=== PATIENT | female | born 1975 | race Caucasian/White ===

== ENCOUNTER 2017-03-03 10:35 | Observation (INO) | payer OTHER ==
[2017-03-03] MEDS ORDERED: NITROGLYCERIN SL TABS 0.4 MG TAB SUBLINGUAL STA (10:51)
[2017-03-03] MEDS ORDERED: SODIUM CHLORIDE 0.9% 1,000 ML IV STA (10:51)
--- NOTE | 2017-03-03 10:54 | ED ---
Chest Pain HPI - General Chief Complaint: Chest Pain Stated Complaint: Chest Pain Time Seen by Provider: 03/03/17 10:47 Source: patient, RN notes reviewed Mode of arrival: wheelchair Limitations: no limitations - History of Present Illness Initial Comments: 41-year-old female presents to the emergency department with a chief complaint of chest pain. Patient states she developed the chest pain center of her chest when she woke up this morning. Patient states she was laying in bed. Patient states she feels that she is having a little bit of hard time breathing. Patient states that she felt that she had some sweating. Patient states it radiates up her neck. Patient states that she has a history of chest pain past but that was when they removed her gallbladder. Patient denies any young history of heart disease in the family. Patient states that she thought it was initially heartburn but states it feels higher than that. She also feels as if her heart is pounding. Patient states her pain is 9 out of 10. Patient states she was concerned due to her symptoms so she thought that she should be evaluated. Patient denies any recent fever, chills, back pain, abdominal pain, nausea vomiting, numbness or tingling, dysuria or hematuria, constipation or diarrhea, headaches or visual changes, or any other current symptoms. - Related Data Home Medications Medication Instructions Recorded Confirmed Ergocalciferol [Vitamin D2] 50,000 unit PO Q14D 03/03/17 03/03/17 Omeprazole [PriLOSEC] 20 mg PO AC-BRKFST 03/03/17 03/03/17 Allergies Allergy/AdvReac Type Severity Reaction Status Date / Time No Known Allergies Allergy Verified 03/03/17 11:32 Review of Systems ROS Statement: Those systems with pertinent positive or pertinent negative responses have been documented in the HPI. ROS Other: All systems not noted in ROS Statement are negative. EKG Findings - EKG Comments: EKG Findings:: A. fib with RVR ventricular rate duration 80, QT to 284. 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 History of Any Multi-Drug Resistant Organisms: None Reported Past Surgical History: Cholecystectomy, Tubal Ligation Additional Past Surgical History / Comment(s): tubal ligation Past Anesthesia/Blood Transfusion Reactions: No Reported Reaction Past Psychological History: No Psychological Hx Reported Smoking Status: Current every day smoker Past Alcohol Use History: Occasional Additional Past Alcohol Use History / Comment(s): 1-2 times/ month Past Drug Use History: None Reported General Exam - General Exam Comments Initial Comments: General: The patient is awake and alert, in no distress, and does not appear acutely ill. Obese. Eye: Pupils are equal, round and reactive to light, extra-ocular movements are intact; there is normal conjunctiva bilaterally. No signs of icterus. Ears, nose, mouth and throat: There are moist mucous membranes and no oral lesions. Neck: The neck is supple, there is no tenderness. Cardiovascular: There is a tachycardia. No murmur, rub or gallop is appreciated. Respiratory: Lungs are clear to auscultation, respirations are non-labored, breath sounds are equal. No wheezes, stridor, rales, or rhonchi. Gastrointestinal: Soft, non-distended, non-tender abdomen without masses or organomegaly noted. There is no rebound or guarding present. No CVA tenderness. Bowel sounds are unremarkable. Back: There is no tenderness to palpation in the midline. There is no obvious deformity. No rashes noted. Musculoskeletal: Normal ROM, no tenderness, There is no pedal edema. There is no calf tenderness or swelling. Sensation intact. Pulses equal bilaterally 2+. Neurological: CN II-XII intact, There are no obvious motor or sensory deficits. Coordination appears grossly intact. Speech is normal. Skin: Skin is warm and dry and no rashes or lesions are noted. Psychiatric: Cooperative, appropriate mood & affect, normal judgment. Limitations: no limitations Course Vital Signs 03/03/17 03/03/17 10:39 11:24 Temperature 98.3 F Pulse Rate 82 91 Respiratory 18 18 Rate Blood Pressure 119/56 147/69 O2 Sat by Pulse 97 95 Oximetry - Reevaluation(s) Reevaluation #1: 03/03/17 11:30 Patient is sent her back to normal sinus rhythm without starting Cardizem we will hold cardizem at this time and continue to monitor patient. Reevaluation #2: 03/03/17 12:36 Patient states she did take an aspirin 324 prior to arrival. Chest Pain MDM - MDM 41-year-old female presents to the emergency Department chief complaint of chest pain. At this time patient was found to be in A. fib with RVR. Patient received nitro and she did go pain free. Patient A. fib self converted she was listening have written a low Cardizem drip is some cardiac are negative we will admit for continued observation. We will continue the heparin. Dr. Azevedo via Dr. Ohara discussed. At this time we will admit for cardiology consult. Disposition Clinical Impression: Atrial fibrillation, Chest pain Disposition: ADMITTED IP TO THIS HOSP Condition: Stable Referrals: Kvng Kaur MD [Primary Care Provider] - 1-2 days Time of Disposition: 12:36 Decision Date: 03/03/17 Decision Time: 12:36
[2017-03-03] MEDS ORDERED: DILTIAZEM 125 MG in SODIUM CHLORIDE 0.9% 100 ML IV ONE (11:02)
[2017-03-03] MEDS ORDERED: HEPARIN SODIUM,PORCINE 5,000 UNIT/ML 1 ML VIAL IV ONE (11:03)
[2017-03-03] MEDS ORDERED: HEPARIN SODIUM,PORCINE 5,000 UNIT/ML 1 ML VIAL IV PRN (11:03)
[2017-03-03] MEDS ORDERED: HEPARIN SODIUM,PORCINE/D5W PMX 25,000 UNIT in DEXTROSE/WATER 1 500ML.BAG IV SCH (11:15)
--- NOTE | 2017-03-03 11:18 | XR ---
EXAMINATION TYPE: XR chest 2V DATE OF EXAM: 03/03/2017 COMPARISON: NONE HISTORY: Chest pains today. Atrial fibrillation on admission. TECHNIQUE: Frontal and lateral views of the chest are obtained. FINDINGS: Exam is slightly suboptimal secondary to patient's large body habitus. There is no focal ai r space opacity, pleural effusion, or pneumothorax seen. The cardiac silhouette size is within sujata l limits. The osseous structures are intact. Cholecystectomy clips are suspected in the upper abdom en seen best on lateral view. IMPRESSION: No acute cardiopulmonary process.
[2017-03-03 11:23] LABS: Basophils % (A) 0 %; CH 30.6; CHCM 33.6; Eosinophils # (A) 0.1 k/uL (0-0.7); Eosinophils % (A) 1 %; HCT 42.6 % (34.0-46.0); HDW 2.35; HGB 14.1 gm/dL (11.4-16.0); Luc # (Auto) 0.14; Luc % (Auto) 1; Lymphocytes # (A) 2.7 k/uL (1.0-4.8); Lymphocytes % (A) 25 %; MCH 30.2 pg (25.0-35.0); MCHC 33.1 g/dL (31.0-37.0); MCV 91.2 fL (80.0-100.0); Mean Platelet Volume 6.7; Monocytes # (A) 0.4 k/uL (0-1.0); Monocytes % (A) 4 %; Neutrophils # (A) 7.7 k/uL (1.3-7.7); Neutrophils % (A) 69 %; RBC 4.67 m/uL (3.80-5.40); RDW 12.8 % (11.5-15.5); WBC 11.1 k/uL (3.8-10.6); WBC (Perox) 10.66
[2017-03-03 11:31] LABS: INR 0.9 (<1.1); Partial Thromboplastin Time 25.2 sec (22.0-30.0); Prothrombin Time 9.7 sec (9.0-12.0)
[2017-03-03 11:32] LABS: ALT 17 U/L (9-52); AST 16 U/L (14-36); Alkaline Phosphatase 88 U/L (38-126); Amylase 39 U/L (30-110); Anion Gap 10 mmol/L; Blood Urea Nitrogen 13 mg/dL (7-17); Calcium 8.8 mg/dL (8.4-10.2); Carbon Dioxide 21 mmol/L (22-30); Chloride 111 mmol/L (98-107); Glucose 115 mg/dL (74-99); Magnesium 1.9 mg/dL (1.6-2.3); Non-African American GFR(MDRD) >60 (>60 ml/min/1.73 sqM); Potassium 3.8 mmol/L (3.5-5.1); Sodium 142 mmol/L (137-145); Total Bilirubin 0.7 mg/dL (0.2-1.3); Total Protein 6.9 g/dL (6.3-8.2)
[2017-03-03 11:47] LABS: Creatine Kinase 56 U/L (30-135)
[2017-03-03 11:59] LABS: Creatine Kinase MB 0.3 ng/mL (0.0-2.4); Troponin I <0.012 ng/mL (0.000-0.034)
[2017-03-03] MEDS ORDERED: NITROGLYCERIN SL TABS 0.4 MG TAB SUBLINGUAL PRN (12:36)
--- NOTE | 2017-03-03 13:55 | P.CRDCN ---
History of Present Illness Consult date: 03/03/17 Reason for Consult (text): chest pain, paroxysmal atrial fibrillation with RVR Chief complaint: chest pain History of present illness: This is a pleasant 41-year-old female patient with a history of acute liver failure in 2012 secondary to diet pills, GERD, obesity, current every day smoker. She drinks about three 32 ounce Mountain Dew's daily. No history of hypertension, diabetes or hyperlipidemia, no history of premature coronary artery disease. She does snore, has ever been tested for sleep apnea. She presented to the emergency department with complaints of developing burning across her chest that radiated up her neck and along her jaw while she was laying in bed. She denies feeling of rapid heartbeat but did feel her heart beating harder. Upon presentation to the emergency department EKG showed atrial fibrillation with rapid ventricular response. She converted to sinus rhythm prior to initiating Cardizem drip. Labs showed negative troponin 1, normal renal function and normal thyroid levels. Chest x-ray showed no acute cardiopulmonary process. Patient was initiated on a heparin drip and Cardizem at 2.5 mg an hour. She is maintaining sinus rhythm. Upon examination, patient is resting comfortably in bed with family at bedside. No further complaints of chest discomfort. 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 History of Any Multi-Drug Resistant Organisms: None Reported Past Surgical History: Cholecystectomy, Tubal Ligation Additional Past Surgical History / Comment(s): tubal ligation Past Anesthesia/Blood Transfusion Reactions: No Reported Reaction Past Psychological History: No Psychological Hx Reported Smoking Status: Current every day smoker Past Alcohol Use History: Occasional Additional Past Alcohol Use History / Comment(s): 1-2 times/ month Past Drug Use History: None Reported - Past Family History Mother Family Medical History: No Reported History Father Family Medical History: No Reported History Medications and Allergies Home Medications Medication Instructions Recorded Confirmed Type Ergocalciferol [Vitamin D2] 50,000 unit PO Q14D 03/03/17 03/03/17 History Omeprazole [PriLOSEC] 20 mg PO AC-BRKFST 03/03/17 03/03/17 History Allergies Allergy/AdvReac Type Severity Reaction Status Date / Time No Known Allergies Allergy Verified 03/03/17 11:32 Physical Exam Vitals: Vital Signs Temp Pulse Resp BP Pulse Ox 03/03/17 13:12 98.1 F 73 17 115/68 100 03/03/17 11:24 91 18 147/69 95 03/03/17 10:39 98.3 F 82 18 119/56 97 Intake and Output 03/02/17 03/03/17 03/03/17 22:59 06:59 14:59 Other: Weight 162.386 kg Patient Weight 03/04/17 06:59 Weight 162.386 kg PHYSICAL EXAMINATION: HEENT: Head is atraumatic, normocephalic. Pupils equal, round. Neck is supple. There is no elevated jugular venous pressure. HEART EXAMINATION: Heart sounds regular, S1 and S2 normal. No murmur or gallop heard. CHEST EXAMINATION: Lungs are clear to auscultation and precussion. No chest wall tenderness is noted on palpation or with deep breathing. ABDOMEN: Soft, obese, nontender. Bowel sounds are heard. No organomegaly noted. EXTREMITIES: 2+ peripheral pulses with no evidence of peripheral edema and no calf tenderness noted. NEUROLOGIC patient is awake, alert and oriented x3. . Results 03/03/17 11:05 03/03/17 11:05 Cardiac Enzymes 03/03/17 03/03/17 Range/Units 11:05 11:05 AST 16 (14-36) U/L CK-MB (CK-2) 0.3 (0.0-2.4) ng/mL Troponin I <0.012 (0.000-0.034) ng/mL Coagulation 03/03/17 Range/Units 11:05 PT 9.7 (9.0-12.0) sec APTT 25.2 (22.0-30.0) sec CBC 03/03/17 Range/Units 11:05 WBC 11.1 H (3.8-10.6) k/uL RBC 4.67 (3.80-5.40) m/uL Hgb 14.1 (11.4-16.0) gm/dL Hct 42.6 (34.0-46.0) % Plt Count 305 (150-450) k/uL Comprehensive Metabolic Panel 03/03/17 Range/Units 11:05 Sodium 142 (137-145) mmol/L Potassium 3.8 (3.5-5.1) mmol/L Chloride 111 H (98-107) mmol/L Carbon Dioxide 21 L (22-30) mmol/L BUN 13 (7-17) mg/dL Creatinine 0.81 (0.52-1.04) mg/dL Glucose 115 H (74-99) mg/dL Calcium 8.8 (8.4-10.2) mg/dL AST 16 (14-36) U/L ALT 17 (9-52) U/L Alkaline Phosphatase 88 (38-126) U/L Total Protein 6.9 (6.3-8.2) g/dL Albumin 3.8 (3.5-5.0) g/dL Current Medications Generic Name Dose Route Start Last Admin Trade Name Freq PRN Reason Stop Dose Admin Aspirin 325 mg 03/04/17 09:00 Aspirin PO DAILY [facility] Ergocalciferol 50,000 unit 03/10/17 12:00 Vitamin D2 PO Q14D [facility] Heparin Sodium (Porcine) 0 unit 03/03/17 11:03 Heparin IV PER PROTOCOL PRN Low PTT Protocol Heparin Sodium/Dextrose 25,000 500 mls @ 20 mls/hr 03/03/17 11:15 03/03/17 11 :21 unit/ IV Solution IV 6.16 units/kg/hr .Q24H CARLO 20 mls/hr Protocol Administration 6.16 UNITS/KG/HR Sodium Chloride 1,000 mls @ 100 mls/hr 03/03/17 12:45 Saline 0.9% IV .Q10H [facility] Nitroglycerin 0.4 mg 03/03/17 12:36 Nitrostat SUBLINGUAL Q5M PRN Chest Pain Pantoprazole Sodium 40 mg 03/04/17 07:30 Protonix PO AC-BRKFST CARLO Intake and Output 03/02/17 03/03/17 03/03/17 22:59 06:59 14:59 Other: Weight 162.386 kg Patient Weight 03/04/17 06:59 Weight 162.386 kg 03/03/17 11:05 03/03/17 11:05 EKG Interpretations (text) Initially showed atrial fibrillation with rapid ventricular response has since converted to normal sinus rhythm with no acute ST-T wave abnormalities. Assessment and Plan Plan: Assessment and plan #1 paroxysmal atrial fibrillation with rapid ventricular response, new onset, currently maintaining sinus rhythm #2 chest pain #3 obesity #4 nicotine dependence #5 GERD From Cardiology's perspective, we will obtain a 2-D echo with Doppler to assess LV function. We will stop Cardizem drip. We will continue IV heparin for 24 hours. Keep the patient nothing by mouth after midnight and we will schedule the patient for a stress echo to be done tomorrow. We will set the patient up for a sleep study as an outpatient. Discussed importance of smoking cessation. Further recommendations to follow. ROLL UP GUIDER OPERATOR note has been reviewed, I agree with a documented findings and plan of care. Patient was seen and examined.
[2017-03-03] MEDS: SODIUM CHLORIDE 0.9% 1,000 ML IV SCH (14:00)
[2017-03-03 15:11] VITALS: RESP 16
[2017-03-03 17:32] LABS: Creatine Kinase 43 U/L (30-135)
[2017-03-03 17:44] LABS: Creatine Kinase MB 0.3 ng/mL (0.0-2.4); Troponin I <0.012 ng/mL (0.000-0.034)
[2017-03-04 00:50] LABS: Creatine Kinase 37 U/L (30-135)
[2017-03-04 01:02] LABS: Creatine Kinase MB 0.3 ng/mL (0.0-2.4); Troponin I <0.012 ng/mL (0.000-0.034)
[2017-03-04] MEDS: SODIUM CHLORIDE 0.9% 1,000 ML IV SCH ×2 (04:27→07:54)
[2017-03-04 07:16] LABS: Prothrombin Time 10.3 sec (9.0-12.0)
[2017-03-04 07:19] LABS: Basophils % (A) 0 %; CH 30.2; CHCM 31.6; Eosinophils # (A) 0.2 k/uL (0-0.7); Eosinophils % (A) 2 %; HCT 37.7 % (34.0-46.0); HDW 2.27; Luc # (Auto) 0.18; Luc % (Auto) 2; Lymphocytes # (A) 3.2 k/uL (1.0-4.8); Lymphocytes % (A) 34 %; MCH 30.5 pg (25.0-35.0); MCHC 31.9 g/dL (31.0-37.0); MCV 95.7 fL (80.0-100.0); Mean Platelet Volume 6.7; Monocytes # (A) 0.4 k/uL (0-1.0); Monocytes % (A) 4 %; Neutrophils # (A) 5.4 k/uL (1.3-7.7); Neutrophils % (A) 58 %; RBC 3.94 m/uL (3.80-5.40); WBC 9.4 k/uL (3.8-10.6); WBC (Perox) 9.51
[2017-03-04] MEDS ORDERED: PANTOPRAZOLE 40 MG TABLET PO SCH (07:30)
[2017-03-04 07:32] LABS: ALT 19 U/L (9-52); AST 16 U/L (14-36); Alkaline Phosphatase 67 U/L (38-126); Anion Gap 6 mmol/L; Blood Urea Nitrogen 12 mg/dL (7-17); Calcium 8.1 mg/dL (8.4-10.2); Carbon Dioxide 21 mmol/L (22-30); Chloride 113 mmol/L (98-107); Cholesterol 107 mg/dL (<200); Glucose 100 mg/dL (74-99); HDL Cholesterol 30 mg/dL (40-60); Non-African American GFR(MDRD) >60 (>60 ml/min/1.73 sqM); Potassium 4.1 mmol/L (3.5-5.1); Sodium 140 mmol/L (137-145); Total Bilirubin 0.6 mg/dL (0.2-1.3); Total Protein 5.9 g/dL (6.3-8.2); Triglycerides 98 mg/dL (<150)
[2017-03-04] MEDS ORDERED: ASPIRIN 325 MG TAB PO SCH (09:00)
--- NOTE | 2017-03-04 10:44 | ECHOF ---
Referral Reason:chest pain, atrial fibrillation MEASUREMENTS -------- HEIGHT: 167.6 cm WEIGHT: 162.4 kg BP: 114/64 IVSd: 1.6 cm (0.6 - 1.1) LVIDd: 3.3 cm (3.9 - 5.3) LVPWd: 1.4 cm (0.6 - 1.1) IVSs: 1.7 cm LVIDs: 1.5 cm LVPWs: 1.5 cm Ao Diam: 3.3 cm (2.0 - 3.7) AV Cusp: 1.6 cm (1.5 - 2.6) LA Diam: 3.4 cm (2.7 - 3.8) MV EXCURSION: 17.701 mm (> 18.000) MV EF SLOPE: 101 mm/s (70 - 150) EPSS: 0.7 cm MV E Jere: 1.02 m/s MV DecT: 239 ms MV A Jere: 0.62 m/s MV E/A Ratio: 1.66 RAP: 5.00 mmHg RVSP: 13.32 mmHg FINDINGS -------- Sinus rhythm. This was a technically good study. There is moderate concentric left ventricular hypertrophy. Overall left ventricular systolic function is normal with, an EF between 55 - 60 %. The right ventricle is normal in size and function. The left atrium is normal in size. The right atrium is normal in size. The aortic valve is trileaflet, and appears structurally normal. No aortic stenosis or regurgitation. The mitral valve leaflets are mildly thickened. Mild mitral regurgitation is present. Mild tricuspid regurgitation present. The right ventricular systolic pressure, as measured by Doppler, is 13.32mmHg. Pulmonic valve appears structurally normal. The aortic root size is normal. The pericardium is normal. CONCLUSIONS -------- 1. Sinus rhythm. 2. Mild mitral regurgitation is present. 3. Mild tricuspid regurgitation present. 4. The right ventricular systolic pressure, as measured by Doppler, is 13.32mmHg. 5. Pulmonic valve appears structurally normal. 6. The aortic root size is normal. 7. The pericardium is normal. 8. This was a technically good study. 9. There is moderate concentric left ventricular hypertrophy. 10. Overall left ventricular systolic function is normal with, an EF between 55 - 60 %. 11. The right ventricle is normal in size and function. 12. The left atrium is normal in size. 13. The right atrium is normal in size. 14. The aortic valve is trileaflet, and appears structurally normal. No aortic stenosis or regurgitation. 15. The mitral valve leaflets are mildly thickened. SUBSTANCE ABUSE CLINICIAN: Callie Peters RDCS
--- NOTE | 2017-03-04 11:47 | ECHOS ---
DATE OF SERVICE: 03/04/2017 AGE: 41Y SEX: F HT: 66" WT: 348 lbs. Protocol Stone: X Others: Stress Echo Stage: II Dur. of Exercise: 6:00 *Heart Rate Blood Pressure *Rest: 68 Rest: 170/84 * *Max. Achieved: 150 Maximum BP: 210/94 85% PMHR: 154 100% PMHR: 181 *METS: 7.1 INDICATIONS: Chest pain, atrial fibrillation. MEDICATIONS: Vitamin D, omeprazole. Patient was exercised for a total period of 6 minutes. Peak heart rate of 150 was achieved. Maximum blood pressure of 210/94 mmHg was noted. Resting EKG shows normal sinus rhythm with normal DC interval and QRS duration and normal ST-T waves. No ST segment depression suggestive of ischemia was noted. The baseline echocardiographic images reveal a normal left ventricular chamber size with normal left ventricular systolic function. In the immediate postexercise period, normal increase in the wall thickness and contractility is noted. FINAL IMPRESSION: This stress echocardiographic study is negative for stress-induced ischemia. EKG portion of the stress test is not suggestive of ischemia. Patient's exercise tolerance is below average and was limited because of the symptoms of shortness of breath.
--- NOTE | 2017-03-04 12:22 | CDI ---
In responding to this query, please exercise your independent professional judgment. The [facility] Coding Staff and Clinical Documentation Specialists appreciate your assistance in clarifying documentation, maintaining compliance with coding guidelines, accurately documenting patients condition and capturing severity of illness. The fact that a question is asked does not imply that any particular answer is desired or expected. Communication forms are a method of clarifying documentation and are not made part of the Legal Health Record. Thank you in advance for your clarification. Last Revision, July 2015 Daisylorena Chandra [address] [place] [address] Documentation Clarification Form Date: 03/04/2017 12:09:00 PM From: Shiela Dickey RN, CDS Admit Date: 03/03/2017 12:36:00 PM Patient Name: Pat Grimm Visit Number: [id number] Dr. Kvng Kaur, Patient admitted for Paroxysmal A-Fib with Rapid Ventricular Rate History/Risk Factors: Obesity, Gerd, BMI 56.9 Clinical Indicators: Patients weight is 159.8 Patients height is 5ft 6inches Calculated BMI is 56.9 Treatment: Heart Healthy Diet, NPO for procedure, In order to capture the severity of condition associated with patient BMI of 56.9, a clinical diagnoses needs to be documented by the physician. Please clarify: Morbid Obesity Obesity Other Unable to determine Please document in your progress notes and discharge summary in order to capture severity of illness and risk of mortality. Include clinical findings that support your diagnosis. FYI: Press F11 to launch patient chart. Place X here if this finding has no clinical significance, is not applicable or if you are not able to provide any additional documentation. COREEND
[2017-03-04 12:43] VITALS: PULSE 65; TEMP 97.5
--- NOTE | 2017-03-04 14:40 | P.DS ---
Providers Date of admission: 03/03/17 12:36 Expected date of discharge: 03/04/17 Attending physician: Kvng Kaur Consults: 03/03/17 12:36 Consult Physician Urgent Consulting Provider: Carlyle Pelayo Consult Reason/Comments: new onset A fib Do you want consulting provider notified?: Yes Primary care physician: Kvng Kaur Hospital Course: 41-year-old female presented on the day of admission to the emergency room for chief complaint of chest pain. Patient stated the chest pain woke her up. Patient states was living in bed. Patient stated she had trouble breathing felt a little diaphoretic. Patient stated initially she thought it was heartburn. Subsequently the patient presented to the emergency room was admitted to the services of the attending with a cardiology consultation requested patient was seen by Dr. Dr. Peguero. It was noted in the emergency room department patient 12-lead EKG showed atrial fibrillation with a rapid ventricular response. Patient was initiated on IV Cardizem drip. Patient converts to sinus prior to initiating the Cardizem drip and has been sinus since the event. Patient's chest pain resolved and the patient did undergo dobutamine stress echo. Patient echo indicated they were negative findings no evidence suggest ischemia. Patient did give a history of snoring. It was recommended the patient be worked up for possible sleep apnea the echocardiogram obtained showed an ejection fraction of 55-60%. Cardiology indicated there is been no further cardiac workup at this time the patient could be discharged home Impression discharge diagnosis Present on admission chest pain with no evidence of acute coronary syndrome History of snoring suspect sleep apnea not ruled out morbid obesity BMI 56 suspect due to excessive calories Current every day smoker with nicotine dependency Present on admission paroxysmal atrial fibrillation with a rapid ventricular response new onset currently maintaining sinus rhythm The above dictated assessment and findings were discussed with dr kaur Impression and the plan of care have been dictated as directed. Aleyda Mccoy nurse practitioner acting as a scribe for dr kaur Patient Condition at Discharge: Stable Plan - Discharge Summary New Discharge Prescriptions: New Aspirin 325 mg PO DAILY tab Continue Omeprazole [PriLOSEC] 20 mg PO AC-BRKFST Ergocalciferol [Vitamin D2 (DRISDOL)] 50,000 unit PO Q14D Discharge Medication List Ergocalciferol [Vitamin D2 (DRISDOL)] 50,000 unit PO Q14D 03/03/17 [History] Omeprazole [PriLOSEC] 20 mg PO AC-BRKFST 03/03/17 [History] Aspirin 325 mg PO DAILY tab 03/04/17 [Rx] Follow up Appointment(s)/Referral(s): Kvng Kaur MD [Primary Care Provider] - 1-2 days Isaura Peguero MD [STAFF PHYSICIAN] - 3 Weeks Patient Instructions/Handouts: How to Stop Smoking (DC) Discharge Disposition: HOME SELF-CARE
[2017-03-04 15:01] VITALS: BP 124/81
--- NOTE | 2017-03-04 15:16 | P.PN ---
Subjective Principal diagnosis: A. fib This is a 41-year-old female patient with history of liver failure secondary to taking diet pills, GERD, obesity, current every day smoker, patient initially presented to the hospital with symptoms of burning chest discomfort. She did undergo stress echocardiographic study was that was negative for any reversible ischemia. Patient was advised to arrange outpatient sleep study, she was also advised to have a follow-up appointment to see Dr. Peguero in the office post discharge. Objective - Vital Signs Vital signs: Vital Signs Temp 97.5 F L 03/04/17 12:00 Pulse 65 03/04/17 12:00 Resp 16 03/04/17 12:00 BP 124/81 03/04/17 15:00 Pulse Ox 96 03/04/17 12:00 Intake & Output 03/03/17 03/04/17 03/04/17 18:59 06:59 18:59 Intake Total 637.692 4947.164 360 Balance 897.602 4781.164 360 Weight 158.2 kg 159.8 kg Intake: IV 1100 Sodium Chloride 0.9% 1, 1100 000 ml @ 100 mls/hr IV . Q10H CARLO Rx#:[id number] Intake, IV Titration 150.333 181.164 Amount Heparin Sodium,Porcine/ 150.333 181.164 D5w Pmx 25,000 unit In Dextrose/Water 1 500ml. bag @ 6.16 UNITS/KG/HR 20 mls/hr IV .Q24H CARLO Rx#: [id number] Oral 120 360 Other: # Voids 0 3 - Exam PHYSICAL EXAMINATION: HEENT: Head is atraumatic, normocephalic. Pupils equal, round. Neck is supple. There is no elevated jugular venous pressure. HEART EXAMINATION: Heart S1, S2 normal. No murmur or gallop heard. CHEST EXAMINATION: Lungs are clear to auscultation and precussion. No chest wall tenderness is noted on palpation or with deep breathing. ABDOMEN: Soft,obese, nontender. Bowel sounds are heard. No organomegaly noted. EXTREMITIES: 2+ peripheral pulses with no evidence of peripheral edema and no calf tenderness noted. NEUROLOGIC patient is awake, alert and oriented -3. . - Labs CBC & Chem 7: 03/04/17 06:43 03/04/17 06:43 Labs: Abnormal Lab Results - Last 24 Hours (Table) 06/03/04/17 03/04/17 Range/Units 00:00 06:43 06:43 APTT 37.5 H 47.0 H (22.0-30.0) sec Chloride 113 H (98-107) mmol/L Carbon Dioxide 21 L (22-30) mmol/L Glucose 100 H (74-99) mg/dL Calcium 8.1 L (8.4-10.2) mg/dL Total Protein 5.9 L (6.3-8.2) g/dL Albumin 3.0 L (3.5-5.0) g/dL HDL Cholesterol 30 L (40-60) mg/dL Assessment and Plan (1) Paroxysmal a-fib Status: Acute (2) Chest pain Status: Acute (3) Treadmill stress test negative for angina pectoris Status: Acute (4) Obesity Status: Acute (5) Nicotine dependence Status: Acute (6) GERD (gastroesophageal reflux disease) Status: Acute Plan: From cardiology's perspective, patient may be able to be discharged home today. We'll make her a follow-up appointment with Dr. Peguero in the office in 3 weeks. Patient will also be scheduled for outpatient sleep study prior to discharge. DNP note has been reviewed, I agree with a documented findings and plan of care. Patient was seen and examined.
--- NOTE | 2017-03-04 21:58 | HP ---
DATE OF ADMISSION: CHIEF COMPLAINT: Chest pain and atrial fibrillation. HISTORY OF PRESENT ILLNESS: This is the first admission known for this 41-year-old white female. She noticed rapid heart beating and chest discomfort, and she came to the emergency room. She had no nausea, vomiting, diaphoresis, cough, hemoptysis. She has never had any heart disease, hypertension, murmurs, rheumatic fever, orthopnea, PND, etc. She came to the emergency room and she converted to sinus rhythm. REVIEW OF SYSTEMS: She has had no syncope, lightheadedness, difficulty with vision or hearing, cough, hemoptysis, rheumatic fever, murmurs, heart failure, abdominal pain, nausea, vomiting, melena, hematochezia, jaundice, hematuria, frequency, renal disease, diabetes, etc. Past medical history, family history, and personal and social histories reveal she is NOT ALLERGIC TO ANY MEDICATION. She is currently on: 1. Vitamin D. 2. Qvar 40 two puffs twice a day. 3. Ventolin HFA. 4. Omeprazole. Past history is unremarkable. She has a history of asthma. She has had 2 pregnancies and 2 children. She does smoke. PHYSICAL EXAM: Blood pressure is 128/90 with a pulse 98, respirations of 40 and she is afebrile. In general she appeared to be overweight and somewhat short of breath. Skin color is normal. Skin is warm and dry. Lymph nodes are not enlarged. Head, ears, eyes, nose, mouth and throat are normal. Neck veins are not distended. Thyroid is not enlarged. Chest is clear. Cardiac exam demonstrated normal sinus rhythm with no murmurs or extra sounds. Abdomen is protuberant, soft and nontender. There is no visceromegaly or masses. Bowel sounds are present. Extremities are normal. Neurologically she is intact. She is admitted to the hospital with the diagnoses: 1. Chest pain. 2. Atrial fibrillation. 3. Asthmatic bronchitis. PLAN: 1. Bed rest. 2. IV fluids. 3. Serial EKGs and enzymes. 4. Consult Cardiology.
--- NOTE | 2017-03-04 22:00 | PN ---
DATE OF SERVICE: 03/04/2017 CHIEF COMPLAINT: Atrial fibrillation and chest pain. HISTORY OF PRESENT ILLNESS: This lady is doing well. Her enzymes have been normal. She is in sinus rhythm. She is going down for a stress echo. If it is normal, she can go home, and this will be arranged by the nurse practitioner. PHYSICAL EXAM: CHEST: Clear. CARDIAC: Normal. There is no murmur or extra sounds. PLAN: Stress echo today and then home this afternoon, which will be constructed by the nurse practitioner.
[2017-03-10] MEDS ORDERED: ERGOCALCIFEROL 50,000 UNIT CAP PO SCH (12:00)
== END 2017-03-04 15:44 | disposition home or self-care (01) ==
LOC: EC 10:35 → INTOOBSV 12:36 → 6SEL 12:36
PROVIDERS: ADMIT Family Medicine; ATTEND Family Medicine
DX: I48.0 Paroxysmal atrial fibrillation (principal); R07.89 Other chest pain; E66.01 Morbid (severe) obesity due to excess calories; F17.200 Nicotine dependence, unspecified, uncomplicated; K21.9 Gastro-esophageal reflux disease without esophagitis; G47.30 Sleep apnea, unspecified; J45.909 Unspecified asthma, uncomplicated; Z68.43 Body mass index [BMI] 50.0-59.9, adult; Z79.899 Other long term (current) drug therapy
CPT/HCPCS: 96366 ×2; 96376; 96361; 96365; 96367; 99285; 36415; 93005; 93017; 93306; 93350; 84439; 80061; 80053 ×2; 82150; 82550; 82553; 83690; 83735; 84443; 84484; 85025 ×2; 85610 ×2; 85730 ×2; 80306; 71020; G0378 ×2; J1644 ×2

== ENCOUNTER → 2017-04-29 | Outpatient (CLI) | payer OTHER ==
--- NOTE | 2017-04-30 08:32 | CONS ---
DATE OF CONSULTATION: 04/29/2017 A 41-year-old lady who had been evaluated in the sleep center for possible obstructive sleep apnea hypopnea syndrome. HISTORY OF PRESENT ILLNESS/SLEEP-WAKE EVALUATION: SLEEP SCHEDULE: Patient's usual sleep schedule from 10 to 11 p.m. until around 9 a.m. FALLING ASLEEP: Sometimes she gets problems with falling asleep. She has TV set in bedroom. DURING SLEEP: Sleeps in different positions with loud snoring and witnessed episodes of stopped breathing during the sleep. She wakes up from sleep multiple times with 2 episodes of nocturia. DURING THE DAY/WAKE STATE: In the morning, she wakes up tired, worries about her sleepiness ( ). [place] sleepiness scale is 7. PAST MEDICAL HISTORY: Positive for atrial fibrillation, asthma and COPD, acid reflux. PAST SURGICAL HISTORY: Cholecystectomy, tubal ligation. MEDICATIONS: Aspirin, vitamin D, Ventolin inhaler, Prilosec. SOCIAL HISTORY: Positive for smoking for about 1 pack a day for 20 years. Alcohol consumption occasional. REVIEW OF SYSTEMS: Multiple awakenings from sleep, sometimes tiredness and sleepiness during the day. No fevers. No double vision. No recent chest pain. No shortness of breath. No abdominal pain. No bleeding episodes. No blood in urine. No seizure episodes. FAMILY HISTORY: Hypertension, heart problems, fibromyalgia, asthma, sleep apnea , snoring, cancer, acid reflux. PHYSICAL EXAMINATION: During physical exam, a lady without distress. VITAL SIGNS: BP 137/88, HR 70, RR 16, height 5 feet 7 inches, weight 344, BMI 55.5. Neck 15-1/2 inches in circumference. Temperature 97.8. Oxygen saturation room air 97%, HEENT: PERRLA. EOMI. Oropharynx extremely low position of soft palate. Some restriction of nasal breathing. NECK: Supple. No JVD. Thyroid is not palpable. LUNGS: Clear to percussion and to auscultation. Good air exchange. No wheezing or rhonchi. HEART: S1, S2, regular. No murmurs, gallops or rubs. ABDOMEN: Obese. EXTREMITIES: No clubbing or cyanosis. 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 Cranial nerves 2 to 7 intact. There is no fasciculation or atrophy noted. No focal deficits observed. IMPRESSION: 1. Snoring, witnessed episodes of stopped breathing during the sleep. Extremely low position of soft palate. Multiple awakenings from sleep. Obstructive sleep apnea hypopnea syndrome. 2. Obesity, BMI 55.5. 3. History of asthma and chronic obstructive pulmonary disease. 4. Acid reflux. 5. History of atrial fibrillation. 6. Status post cholecystectomy. 7. Status post tubal ligation. PLAN: 1. Polysomnography for evaluation of patient's breathing during sleep. 2. CPAP/BiPAP titration if sleep study confirms obstructive sleep apnea- hypopnea syndrome. 3. Preferable position during sleep on the side. 4. No diving if patient feels any sleepiness. Patient is aware of civil and criminal liability for unsafe driving. 5. I will see patient for follow-up visit to explain results of the testing and following plan. Thank you very much for referring this patient for consultation. Sincerely Jean-Paul Ricks MD, PhD, FAASM Diplomat of [place] [employer] Sleep Medicine Board by [place] [employer] [place] [employer] Physical Science Teacher of [facility] [place] [facility]ITAL[facility]
== END | disposition home or self-care (01) ==
LOC: SLEEP 13:56
PROVIDERS: ATTEND Internal Medicine
DX: G47.33 Obstructive sleep apnea (adult) (pediatric) (principal); E66.9 Obesity, unspecified; K21.9 Gastro-esophageal reflux disease without esophagitis; Z68.43 Body mass index [BMI] 50.0-59.9, adult; Z98.890 Other specified postprocedural states
CPT/HCPCS: 99211

== ENCOUNTER → 2017-05-25 | Outpatient (CLI) | payer OTHER ==
--- NOTE | 2017-05-25 16:56 | CT ---
EXAMINATION TYPE: CT brain w con DATE OF EXAM: 05/25/2017 COMPARISON: NONE INDICATION: Headaches without injury DLP: 1047.1 mGycm, Automated exposure control for dose reduction was used. CONTRAST: None CT of the brain is performed utilizing 3 mm thick sections through the posterior fossa and 3 mm thick sections through the remaining calvarium. Study is performed within 24 hours of arrival to the hosp ital. No abnormal hyperdensity is present to suggest an acute intracranial hemorrhage. No mass lesion is evident. No acute infarcts are evident. Ventricles and sulci are appropriate for the patient age. Paranasal sinuses and mastoid air cells within the [id number] are clear. IMPRESSIONS: 1. Normal postcontrast CT Brain
--- NOTE | 2017-05-26 07:07 | US ---
EXAMINATION TYPE: US thyroid st tissue head/neck DATE OF EXAM: 05/25/2017 COMPARISON: NONE CLINICAL HISTORY: R22.1 Mass of throat, R51 chronic headaches. Patient stated had right neck palapble x 3 weeks and no longer feels mass. GLAND SIZE: Right Lobe: 5.9 x 1.9 x 1.0 cm Overall Parenchyma: homogenous Left Lobe: 4.4 x 1.4 x 1.4 cm Overall Parenchyma: homogeneous Isthmus Thickness: 0.2 cm NODULES RIGHT: # of nodules measured on right: 0 LEFT: # of nodules measured on left: 0 ISTHMUS: # of nodules measured in the isthmus: 01 Bilateral neck scanned: upper neck node is imaged at location felt palpable. Size of lymph node = 1.6 x 0.8 x 0.4cm . IMPRESSION: Normal thyroid 2. Note is made of lymphadenopathy within the neck region at the level of the palpable abnormality ri ght side
== END | disposition home or self-care (01) ==
LOC: RADUSMAIN 15:54
PROVIDERS: ATTEND Family Medicine
DX: R59.0 Localized enlarged lymph nodes (principal); R51 Headache
CPT/HCPCS: 76536; 70460; Q9967

== ENCOUNTER → 2017-06-24 | Outpatient (CLI) | payer OTHER ==
--- NOTE | 2017-06-24 18:20 | PN ---
PROGRESS NOTE DATE OF SERVICE: 06/24/17 HISTORY: 41-year-old lady has been followed in the sleep center for discussing results of sleep study. Recently patient had diagnostic sleep study and it showed total apnea-hypopnea index 4.4 with lowest oxygen level 88.6%, which is normal by today's criteria. Apnea- hypopnea index in REM sleep slightly high at 7.5, but it is not considered to be significant for treatment again by today's criteria. Loud snoring had been documented during the sleep study. The patient lost 6 pounds since we did the sleep study. [place] Sleepiness Scale today is 6, which is normal. MEDICATIONS: 1. Steroids and inhaler. 2. Ventolin. 3. Ventolin inhaler. 4. Prilosec. 5. Vitamin D. 6. Aspirin. PHYSICAL EXAM: A 41-year-old lady without distress, BP 131/90, HR 74, RR 16, temp 98.2, oxygen saturation room air 96%. Weight 338, height 5 feet 6 inches, BMI 54.5. Oropharynx low position of soft palate. ABDOMEN: Obese. Neck Supple, no JVD. Thyroid is not palpable. LUNGS Clear to percussion and to auscultation. Good air exchange. No wheezing or rhonchi. HEART S1, S2 regular. No murmurs, gallops, or rubs. ABDOMEN: Obese, Soft and nontender. Bowel sounds are present. No organomegaly appreciated. EXTREMITIES No clubbing or cyanosis. 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 Cranial nerves 2 to 7 intact. There is no fasciculation or atrophy. noted. No focal deficits observed. IMPRESSION: 1. Loud snoring has been documented during the sleep study. 2. No significant respiratory abnormalities by present criteria by results of the polysomnogram. 3. Obesity. 4. History of episodes of atrial fibrillation. 5. History of asthma and chronic obstructive pulmonary disease. 6. Acid reflux. 7. Status post cholecystectomy. 8. Status post tubal ligation. PLAN: 1. Losing weight. 2. Preferable position during the sleep on the side. 3. Followup visit in 1 year and at that time if necessary, we will repeat the sleep test. Thank you very much for allowing me to participate in management of your patient. Sincerely, Jean-Paul Ricks MD, PhD, FAASM Diplomat of [place] [employer] [place] [employer] Residential Real Estate Appraiser of [facility] [place] MMOLUL / KATHERYNN: [phone] /
== END ==
LOC: SLEEP 15:41
PROVIDERS: ATTEND Internal Medicine
DX: R06.83 Snoring (principal); E66.9 Obesity, unspecified; K21.9 Gastro-esophageal reflux disease without esophagitis; J45.909 Unspecified asthma, uncomplicated; J44.9 Chronic obstructive pulmonary disease, unspecified; I48.91 Unspecified atrial fibrillation; Z90.49 Acquired absence of other specified parts of digestive tract; Z90.89 Acquired absence of other organs; Z79.899 Other long term (current) drug therapy; Z79.82 Long term (current) use of aspirin; Z79.51 Long term (current) use of inhaled steroids

== ENCOUNTER → 2017-09-29 | Outpatient (CLI) | payer OTHER ==
--- NOTE | 2017-09-29 13:29 | US ---
EXAMINATION TYPE: US transvaginal DATE OF EXAM: 09/29/2017 COMPARISON: NONE CLINICAL HISTORY: N91.4 SECONDARY OLIGOMENORRHEA. Oligomenorrhea, irregular menses, tubal ligation TECHNIQUE: Transvaginal (TV) Date of LMP: April 2017 EXAM MEASUREMENTS: Uterus: 8.2 x 4.2 x 4.7 cm Endometrial Stripe: 0.7 cm Right Ovary: unable to visualize Left Ovary: unable to visualize 1. Uterus: Anteverted heterogeneous 2. Endometrium: wnl 3. Right Ovary: Obscured by overlying bowel gas 4. Left Ovary: Obscured by overlying bowel gas 5. Bilateral Adnexa: wnl 6. Posterior cul-de-sac: wnl IMPRESSION: 1. Uterine myometrial heterogeneity. Otherwise unremarkable study.
--- NOTE | 2017-09-29 13:30 | MM ---
Reason for exam: screening (asymptomatic). Baseline mammogram. History: Took hormonal contraceptives beginning at age 23. Physical Findings: Nurse did not find any significant physical abnormalities on exam. MG Screening Mammo w CAD Bilateral CC and MLO view(s) were taken. The breast tissue is almost entirely fat. There is no discrete abnormality. These results were verbally communicated with the patient and result sheet given to the patient on 09/29/17. ASSESSMENT: Negative, BI-RAD 1 RECOMMENDATION: Routine screening mammogram of both breasts in 1 year.
== END | disposition home or self-care (01) ==
LOC: RADUSWWP 12:32
PROVIDERS: ATTEND Obstetrics & Gynecology
DX: Z12.31 Encounter for screening mammogram for malignant neoplasm of breast (principal); N91.4 Secondary oligomenorrhea
CPT/HCPCS: 76830; 77067

== ENCOUNTER 2020-08-16 21:09 | Emergency (ER) | payer OTHER ==
[2020-08-16 21:23] VITALS: BP 146/87; PULSE 80; RESP 17; TEMP 98.7
[2020-08-16] MEDS ORDERED: dexAMETHasone 4 MG TAB PO STA (21:38)
[2020-08-16] MEDS ORDERED: HYDROmorphone 1 MG/ML 1 ML SYRINGE IM STA (21:38)
[2020-08-16] MEDS ORDERED: ACET/COD 300 MG/30 MG STARTER PACK 6 TAB BTL PO STA (21:38)
[2020-08-16] MEDS ORDERED: IBUPROFEN 800 MG TAB PO STA (21:38)
--- NOTE | 2020-08-16 21:40 | ED ---
Back Pain HPI - General Chief Complaint: Back Pain/Injury Stated Complaint: L Shoulder Pain Time Seen by Provider: 08/16/20 21:27 Source: patient - Related Data Home Medications Medication Instructions Recorded Confirmed Ergocalciferol [Vitamin D2 50,000 unit PO Q14D 03/03/17 03/03/17 (DRISDOL)] Omeprazole [PriLOSEC] 20 mg PO AC-[id number] 03/03/17 03/03/17 Previous Rx's Medication Instructions Recorded Aspirin 325 mg PO DAILY tab 03/04/17 Allergies Allergy/AdvReac Type Severity Reaction Status Date / Time No Known Allergies Allergy Verified 08/16/20 21:23 Review of Systems ROS Statement: Those systems with pertinent positive or pertinent negative responses have been documented in the HPI. ROS Other: All systems not noted in ROS Statement are negative. 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 History of Any Multi-Drug Resistant Organisms: None Reported Past Surgical History: Cholecystectomy, Tubal Ligation Additional Past Surgical History / Comment(s): tubal ligation Past Anesthesia/Blood Transfusion Reactions: No Reported Reaction Past Psychological History: No Psychological Hx Reported Past Alcohol Use History: Occasional Past Drug Use History: None Reported - Past Family History Mother Family Medical History: No Reported History Father Family Medical History: No Reported History Course Vital Signs 08/16/20 21:18 Temperature 98.7 F Pulse Rate 80 Respiratory 17 Rate Blood Pressure 146/87 O2 Sat by Pulse 100 Oximetry Disposition Clinical Impression: Cervical radiculopathy, Left shoulder pain Disposition: HOME SELF-CARE Condition: Good Instructions (If sedation given, give patient instructions): Cervical Radiculopathy (ED) Is patient prescribed a controlled substance at d/c from ED?: No Referrals: Kvng Kaur MD [Primary Care Provider] - 1-2 days
== END 2020-08-16 22:26 | disposition home or self-care (01) ==
LOC: EC 21:09
DX: M54.12 Radiculopathy, cervical region (principal); M25.512 Pain in left shoulder; K21.9 Gastro-esophageal reflux disease without esophagitis; Z79.899 Other long term (current) drug therapy
CPT/HCPCS: 99283; 96372; J8540; J1170

== ENCOUNTER → 2022-12-08 | Outpatient (CLI) | payer OTHER ==
--- NOTE | 2022-12-09 09:02 | MM ---
Reason for Exam: Screening (asymptomatic). Last mammogram was performed 5 year(s) and 2 month(s) ago. Patient History: Menarche at age 12. First Full-Term at age 23. Postmenopausal. Hormonal Contraceptives, from age 23 until age 25. Risk Values: Charito 5 year model risk: 0.8%. NCI Lifetime model risk: 9.4%. Prior Study Comparison: 09/29/2017 Bilateral Screening Mammogram, [facility]. Tissue Density: There are scattered fibroglandular densities. Findings: Analyzed By CAD. Benign-appearing bilateral axillary lymph nodes are redemonstrated. There is no suspicious new group of microcalcifications or new suspicious mass in either breast. Overall Assessment: Negative, BI-RAD 1 Management: Screening Mammogram of both breasts in 1 year. A clinical breast exam by your physician is recommended on an annual basis and results should be correlated with mammographic findings. Electronically signed and approved by: Fausto Francisco M.D.
== END | disposition home or self-care (01) ==
LOC: RADMAMWWP 15:50
PROVIDERS: ATTEND Family Medicine
DX: Z12.31 Encounter for screening mammogram for malignant neoplasm of breast (principal); Z78.0 Asymptomatic menopausal state
CPT/HCPCS: 77067

== ENCOUNTER → 2023-12-10 | Outpatient (CLI) | payer OTHER ==
--- NOTE | 2023-12-15 09:48 | MM ---
Reason for Exam: Screening (asymptomatic). Last screening mammogram was performed 12 month(s) ago. Patient History: Menarche at age 12. First Full-Term at age 23. Postmenopausal. Hormonal Contraceptives, from age 23 until age 25. Risk Values: Charito 5 year model risk: 0.8%. NCI Lifetime model risk: 9.3%. Prior Study Comparison: 09/29/2017 Bilateral Screening Mammogram, [facility]. 12/08/2022 Bilateral MG screening mammo w CAD, [facility]. Tissue Density: There are scattered areas of fibroglandular density. Findings: Analyzed By CAD. There is no suspicious group of microcalcifications or new suspicious mass in either breast. Overall Assessment: Benign, BI-RAD 2 Management: Screening Mammogram of both breasts in 1 year. . Patient should continue monthly self-breast exams. A clinical breast exam by your physician is recommended on an annual basis. This exam should not preclude additional follow-up of suspicious palpable abnormalities. Note on Charito scores and lifetime risk: 1. A Charito score greater than 3% is considered moderate risk. If this is the case, consider specialist referral to assess eligibility for a risk reducing agent. 2. If overall lifetime risk for the development of breast cancer is 20% or higher, the patient may qualify for future screening with alternating mammogram and breast MRI. Electronically signed and approved by: Ra Maddox M.D. Radiologis
== END | disposition home or self-care (01) ==
LOC: RADMAMWWP 10:44
PROVIDERS: ATTEND Family Medicine
DX: Z12.31 Encounter for screening mammogram for malignant neoplasm of breast (principal); Z78.0 Asymptomatic menopausal state
CPT/HCPCS: 77067

== ENCOUNTER → 2025-01-17 | Outpatient (CLI) | payer OTHER ==
--- NOTE | 2025-01-17 11:56 | MM ---
Reason for Exam: Screening (asymptomatic). Last mammogram was performed 1 year(s) and 1 month(s) ago. Patient History: Menarche at age 12. First Full-Term at age 23. Postmenopausal. Hormonal Contraceptives, from age 23 until age 25. Risk Values: Charito 5 year model risk: 0.9%. NCI Lifetime model risk: 9.2%. Prior Study Comparison: 09/29/2017 Bilateral Screening Mammogram, [facility]. 12/08/2022 Bilateral MG screening mammo w CAD, [facility]. 12/10/2023 Bilateral MG screening mammo w CAD, [facility]. Tissue Density: The breasts are almost entirely fatty. Findings: Analyzed By CAD. There is no suspicious group of microcalcifications or new suspicious mass in either breast. Overall Assessment: Negative, BI-RAD 1 Management: Screening Mammogram of both breasts in 1 year. . Patient should continue monthly self-breast exams. A clinical breast exam by your physician is recommended on an annual basis. This exam should not preclude additional follow-up of suspicious palpable abnormalities. Note on Charito scores and lifetime risk: 1. A Charito score greater than 3% is considered moderate risk. If this is the case, consider specialist referral to assess eligibility for a risk reducing agent. 2. If overall lifetime risk for the development of breast cancer is 20% or higher, the patient may qualify for future screening with alternating mammogram and breast MRI. [facility], , 01/17/2025 11:53 AM. Electronically signed and approved by: Fausto Francisco M.D.
== END | disposition home or self-care (01) ==
LOC: RADMAMWWP 10:42
PROVIDERS: ATTEND Family Medicine
DX: Z12.31 Encounter for screening mammogram for malignant neoplasm of breast (principal); R92.313 Mammographic fatty tissue density, bilateral breasts; Z78.0 Asymptomatic menopausal state
CPT/HCPCS: 77063; 77067

== ENCOUNTER 2025-02-22 11:33 | Day surgery (SDC) | payer OTHER ==
[2025-02-20 14:16] VITALS: BMI 59.2
[~2025-02-22 11:33] MED LIST: LIDOCAINE 1% (10MG/ML) FOR IV START INTRADERMA PRN
[2025-02-22] MEDS: LACTATED RINGERS 1,000 ML IV SCH (12:19)
[2025-02-22] MEDS: IV FLUID CONTINUATION 1,000 ML IV ONE (12:24)
[2025-02-22 12:27] VITALS: TEMP 97.6
[2025-02-22] MEDS ORDERED: PROPOFOL 10 MG/ML 20 ML VIAL IV ONE (12:39)
[2025-02-22] MEDS ORDERED: GLYCOPYRROLATE 0.2 MG/ML 2 ML VIAL ONE (12:39)
[2025-02-22 13:18] VITALS: BP 115/78; PULSE 72; RESP 18
--- NOTE | 2025-02-22 21:05 | P.OP ---
Date of Procedure: 02/22/25 Preoperative Diagnosis: Screening Colonoscopy Postoperative Diagnosis: Diverticulosis Procedure(s) Performed: Colonoscopy Anesthesia: MAC Surgeon: Kirby Watts Pathology: none sent Condition: stable Disposition: PACU Description of Procedure: After informed consent was obtained, the patient was placed in the left lateral position. Digital rectal exam was performed revealing normal sphincter tone and no external hemorrhoids. The colonoscope was inserted into rectum and advanced under direct visualization, without difficulty, to the cecum, where the cecal strap, appendiceal orifice, and the ileocecal valve were identified. The quality of the preparation was good. The colonoscope was then withdrawn while carefully examining the mucosa. The colonic mucosa appeared normal with normal vascularity and haustral markings. No masses, polyps, or AVM/s were seen. There was divertilculosis noted. On retroflexed view in the rectum, there are small internal hemorrhoids. The endoscope was removed and the procedure terminated. The patient tolerated the procedure well without complications.
== END 2025-02-22 13:33 | disposition home or self-care (01) ==
LOC: ORWHC2ENDO 11:33
PROVIDERS: ATTEND Surgery
DX: Z12.11 Encounter for screening for malignant neoplasm of colon (principal); K57.30 Diverticulosis of large intestine without perforation or abscess without bleeding; K64.8 Other hemorrhoids; I48.91 Unspecified atrial fibrillation; F17.290 Nicotine dependence, other tobacco product, uncomplicated; F41.9 Anxiety disorder, unspecified; F32.A Depression, unspecified; K21.9 Gastro-esophageal reflux disease without esophagitis; Z79.85 Long-term (current) use of injectable non-insulin antidiabetic drugs; Z79.899 Other long term (current) drug therapy
CPT/HCPCS: 45378; J2704; J1596